=== PATIENT | female | born 1950 | race African-American/Black ===

== ENCOUNTER 2019-08-05 01:44 | Inpatient (IN) | payer BC, OTHER ==
[~2019-08-05] VITALS: Ht 157.5 cm; Wt 82.1 kg
[2019-08-05] VITALS (7 sets, daily range): BP systolic 104–123; BP diastolic 63–81
[2019-08-05 02:29] LABS: ABSOLUTE NEUTROPHILS 10.1 thou/uL (1.4-8.2); BASOPHILS 0.5 % (0.0-2.0); EOSINOPHILS 0.2 % (0.0-3.0); HEMATOCRIT 39.3 % (37.0-47.0); HEMOGLOBIN 12.5 gm/dL (12.0-15.0); MCH 25.5 pg (26.0-34.0); MCHC 31.9 g/dL (28.0-37.0); MCV 80.1 fL (80.0-100.0); MONOCYTES 4.8 % (1.0-8.0); PLATELET COUNT 440 thou/uL (150-400); POLYS 84.5 % (36.0-66.0); RBC 4.91 mil/uL (4.20-5.00); RDW 15.3 % (10.5-14.5)
[2019-08-05 02:40] LABS: ALBUMIN 2.8 g/dL (3.4-5.0); ANION GAP 10 mmol/L (7-16); BUN 7 mg/dL (7-18); CALCIUM 8.9 mg/dL (8.5-10.1); CHLORIDE 97 mmol/L (98-107); CO2 31 mmol/L (21-32); CREATININE 0.8 mg/dL (0.6-1.0); GLUCOSE 142 mg/dL (74-106); LIPASE 121 U/L (73-393); SGOT 224 U/L (15-37); SGPT 99 U/L (30-65); SODIUM 138 mmol/L (136-145); TOTAL BILIRUBIN 1.1 mg/dL (<0.1-1.0); TOTAL PROTEIN 7.7 g/dL (6.4-8.2); TROPONIN-I <0.06 ng/mL (<0.06)
[2019-08-05 02:42] LABS: POTASSIUM 2.7 mmol/L (3.5-5.1)
[2019-08-05] MEDS ORDERED: HYDROCHLOROTHIA25 M2 PO (02:51)
[2019-08-05] MEDS ORDERED: PRAVASTATIN SOD20 MG PO (02:51)
[2019-08-05] MEDS ORDERED: NORVASC 2.5 MG2.5 M1 PO (02:52)
--- NOTE | 2019-08-05 06:36 | NUR ---
PT ARRIVED FROM THE ER @0415 THIS MORNING WITH SPOUCE BY BEDSIDE. PT A&OX4 WITH MILD PAIN IN RLQ. IV INTACT FLUIDS AND POTASSIUM INFUISING. PT NPO ON ARRIVAL. DR RODARTE CAME BY TO SEE PT STATED TO STILL KEEP HER NPO. ADMISSION DONE AND PT ORIENTED TO THE UNIT. ZOFRAN GIVEN IN THE ER PT STATED NOT CURRENTLY NAUSEATED. CALL LIGHT IN REACH AND WILL CONT WITH POC TILL EOS.
--- NOTE | 2019-08-05 13:10 | NUR ---
PT ADMITTED RELATED TO ACUTE CHOLECYSTITIS. CM REVIEWED CHART AND SPOKE WITH CARE TEAM. CM MET WITH PT AT BEDSIDE THIS DAY. PT IS A&O X4. CM ROLE INTRODUCED. PT INDICATED SHE LIVES IN AN [place]ART[place] HER SPOUSE WITH 1 STEP TO ENTER AND NO STEPS INSIDE. 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 PT INDICATED NO DME OR HH HX. PT INDICATED SHE PLANS TO DC HOME ONCE MEDICALLY STABLE. PT TO HAVE MRCP AND MAY HAVE LAP ELBA DEPENDING ON RESULTS. CM TO FOLLOW INDICATED WITH DC PLANNING.
--- NOTE | 2019-08-05 15:44 | EKG ---
[facility] [place] [address] ELECTROCARDIOGRAM REPORT Name: JUAN MCCLELLAND Room #: 438-P ADM IN M.R.#: [id number] Admission: 08/05/19 Attend Phys: Vaishnavi Rooney MD Discharge: Date of : 52 Report #: [id number] THIS REPORT FOR: cc: Petty Owens K. Steven DO Lundgren, Craig H. 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
--- NOTE | 2019-08-05 19:40 | NUR ---
PT A&OX4. IV INTACT IN R AC. AMULATES WITH STAND BY ASSIST. PT ON CLEARS TIL MN THEN NPO. PLANS ARE FOR PT TO HAVE LAP ELBA TOMARROW. IV CONT. FLUIDS AND IVAB INFUSING.
--- NOTE | 2019-08-06 03:00 | NUR ---
PT GETS UP WITH SBA TO THE BATHROOM. PAIN TO ABDOMEN IS AT AROUND 5/10, RELIEVED WITH MORPHINE.AFEBRILE. DENIES NAUSEA OR VOMITING.NPO SINCE MIDNOC FOR SURGERY TODAY.
[2019-08-06 04:25] VITALS: BP 100/61
[2019-08-06 06:13] LABS: HEMATOCRIT 35.3 % (37.0-47.0); HEMOGLOBIN 11.3 gm/dL (12.0-15.0); MCH 25.7 pg (26.0-34.0); MCHC 31.9 g/dL (28.0-37.0); MCV 80.6 fL (80.0-100.0); RBC 4.39 mil/uL (4.20-5.00); WBC 7.5 thou/uL (4.0-11.0)
[2019-08-06 06:37] LABS: ALBUMIN 2.2 g/dL (3.4-5.0); CALCIUM 8.2 mg/dL (8.5-10.1); CREATININE 1.5 mg/dL (0.6-1.0); DIRECT BILIRUBIN 0.9 mg/dL (<0.1-0.2); POTASSIUM 3.1 mmol/L (3.5-5.1); TOTAL BILIRUBIN 1.5 mg/dL (<0.1-1.0); TOTAL PROTEIN 6.5 g/dL (6.4-8.2)
[2019-08-06 07:30] VITALS: BP 112/69
--- NOTE | 2019-08-06 13:43 | NUR ---
PT HAVING LAP ELBA THIS DAY. CM TO FOLLOW SHOULD ANY DC NEEDS ARISE.
[2019-08-06 17:00] VITALS: BP 125/68
--- NOTE | 2019-08-06 18:06 | NUR ---
PT RETURNED FROM PACU FROM LAP CHOLE. CÁRDENAS. LAP SITES ARE C/D/I WITH BERTHA DRAIN. IV FLUIDS NS AT RESTARTED AT 125/HR. CALL LIGHT W/I REACH BED ALARM IS ON.
[2019-08-06 19:55] VITALS: BP 116/62
--- NOTE | 2019-08-07 02:16 | NUR ---
ASSUMED PT CARE AT 1900. LAP SITES AND DRESSING ARE DRY AND INTACT. PT REPORTS NO NAUSEA, PAIN IS BEING MANAGED WITH PO PAIN MEDS. DRAIN HAS LITTLE OUTPUT. UP TO THE TOILE WITH STANDBY ASSIST TONIGHT, PT TOLERATED WELL. ANTIBIOTICS AND FLUIDS INFUSING PER ORDER. PT LOWERED TO 2L OF O2, UNABLE TO WEAN MUCH MORE DUE TO O2 SAT, WILL CONTINUE TO MONITOR. CURRENTLY SLEEPING IN BED WITH CALL LIGHT IN REACH.
[2019-08-07 04:20] VITALS: BP 108/57
[2019-08-07 06:15] LABS: HEMATOCRIT 35.6 % (37.0-47.0); HEMOGLOBIN 11.3 gm/dL (12.0-15.0); MCH 26.1 pg (26.0-34.0); MCHC 31.8 g/dL (28.0-37.0); RBC 4.33 mil/uL (4.20-5.00); RDW 16.4 % (10.5-14.5); WBC 11.7 thou/uL (4.0-11.0)
[2019-08-07 06:22] LABS: ALBUMIN 2.3 g/dL (3.4-5.0); CALCIUM 8.6 mg/dL (8.5-10.1); CREATININE 1.4 mg/dL (0.6-1.0); DIRECT BILIRUBIN 0.3 mg/dL (<0.1-0.2); TOTAL BILIRUBIN 0.7 mg/dL (<0.1-1.0)
[2019-08-07 06:33] LABS: POTASSIUM 4.1 mmol/L (3.5-5.1)
[2019-08-07 08:17] VITALS: BP 120/70
[2019-08-07] MEDS ORDERED: MIRALAX17 GM PO (14:27)
[2019-08-07] MEDS ORDERED: NORCO 5-325 TA1 EAC1 PO (14:27)
[2019-08-07] MEDS ORDERED: COLACE100 MG PO (14:27)
--- NOTE | 2019-08-07 14:31 | NUR ---
CARE TEAM INDICATED THAT PT IS MEDICALLY STABLE TO DISCHARGE HOME THIS DAY. PT IS TO DC HOME WITH A DRAIN. CARE TEAM AND PT INDICATED THAT SHE WAS COMFORTABLE CARING FOR THE DRAIN HERSELF AND DIDN'T NEED HOME HEALTH SERVICES UPON DC. PT IS TO DC HOME TO SELF CARE. NO OTHER CM INTERVENTION INDICATED. CASE CLOSED.
[2019-08-07 14:50] VITALS: BP 120/70
--- NOTE | 2019-08-07 16:17 | NUR ---
DC ORDERS RECEIVED. IV REMOVED FROM R AC. DC INSTRUCTIONS, SCRIPT, F/U APPOINTMENTS AND DRAIN CARE REVIEWED WITH PT. SHEET METAL ERECTOR ESCORTED PT TO MAIN ENTRANCE.
--- NOTE | 2019-08-08 17:07 | PATH ---
[facility] [address] [place] [address] PATHOLOGY RPT PROCEDURE Name: LEEANNA MCCLELLAND Room #: 438-P [facility] IN M.R.#: [id number] Admission: 08/05/19 Date of : 52 Discharge: 08/07/19 Report #: [id number] Path Case #: [id number] [facility] Accession Number: [id number] . 01 Material submitted: . gallbladder - GALLBLADDER . 01 Clinical history: . Acute cholecystitis . 02 Diagnosis: Gallbladder, cholecystectomy: - Marked acute and hemorrhagic cholecystitis associated with ulceration. - Cholelithiasis. 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 02 Electronically signed: . Peace Dsouza MD, Pathologist NPI- [id number] . 01 Gross description: . The specimen is received in formalin, labeled "Leeanna Mcclelland gallbladder". Received is a previously opened gallbladder measuring 8.8 x 3.8 x 2.6 cm in greatest dimensions displaying a dusky pink-snyder serosal surface. Opening the specimen reveals a velvety to smooth, light brown mucosa with a moderate amount of overlying exudate and with a gallbladder wall thickness of 0.1 cm. Calculi are present displaying a light brown and nodular appearance, and no masses or lesions are noted grossly. Cognos Tm1 Developer sections, to include the proximal margin, are submitted in cassette A1. (CAA; 08/07/2019) QAC/QA 08/07/2019 1446 Local . 02 Pathologist provided ICD-10: K80.00, K82.8 . 02 CPT . 818297 Specimen Comment: A courtesy copy of this report has been sent to [phone], [phone] Specimen Comment: [phone], Specimen Comment: Report sent to DR GALAN,DR HENLEY / DR ALBRECHT Performed at: [address] [id number] MD Ghanshyam Huber MD Phone: [phone] [address] [address] PATHOLOGY RPT PROCEDURE Name: ALFRED MCCLELLANDDANELLE Whitehead Room #: 438-P DIS IN M.R.#: [id number] Admission: 08/05/19 Date of : 52 Discharge: 08/07/19 Report #: [id number] Path Case #: [id number] Performed at: 02 [facility] [address] [facility], [place], [place] [id number] MD Peace Dsouza MD Phone: [phone]
== END 2019-08-07 17:50 | disposition home or self-care (01) | DRG 418 ==
LOC: ER 01:44 → EROBS 03:08 → 4S 03:08 → EROBS 03:43 → 4S 04:08
PROVIDERS: Emergency Medicine Emergency Medical Services; Nurse Practitioner; Nurse Practitioner Family; Surgery; ADMIT Internal Medicine
PROC: BF121ZZ Fluoroscopy of Gallbladder using Low Osmolar Contrast (ICD-10-PCS; principal; 2019-08-06)
PROC: 0FT44ZZ Resection of Gallbladder, Percutaneous Endoscopic Approach (ICD-10-PCS; principal; 2019-08-06)
DX: K80.00 Calculus of gallbladder with acute cholecystitis without obstruction (principal); N17.9 Acute kidney failure, unspecified; E87.6 Hypokalemia; E78.5 Hyperlipidemia, unspecified; R74.0 Nonspecific elevation of levels of transaminase and lactic acid dehydrogenase [LDH]; I10 Essential (primary) hypertension; E66.01 Morbid (severe) obesity due to excess calories; Z68.33 Body mass index [BMI] 33.0-33.9, adult; Z80.0 Family history of malignant neoplasm of digestive organs; Z79.899 Other long term (current) drug therapy
CPT/HCPCS: 10195; 50010; 50101; 50249; 50331; 50411; 50555; 50558; 50900; 51489; 52265; 52266; 52287; 53307; 53310; 53312; 54022; 54118; 55245; 56462; 56525; 56526; 56674; 62110; 62900; 70005

== ENCOUNTER 2019-10-17 07:45 | Day surgery (SDC) | payer BC, OTHER ==
[2019-10-10 11:21] LABS: HEMOGLOBIN 12.9 gm/dL (12.0-15.0); MCH 26.6 pg (26.0-34.0); MCHC 33.2 g/dL (28.0-37.0); MCV 80.4 fL (80.0-100.0); RBC 4.85 mil/uL (4.20-5.00); RDW 15.2 % (10.5-14.5); WBC 6.2 thou/uL (4.0-11.0)
[2019-10-10 11:29] LABS: URINE BILIRUBIN NEGATIVE (Negative); URINE BLOOD NEGATIVE (Negative); URINE CLARITY CLEAR; URINE COLOR YELLOW; URINE GLUCOSE-RANDOM* NEGATIVE (Negative); URINE KETONES NEGATIVE (Negative); URINE LEUKOCYTES-REFLEX TRACE (Negative); URINE NITRITE-REFLEX NEGATIVE (Negative); URINE PROTEIN (DIPSTICK) NEGATIVE (Negative); URINE SPECIFIC GRAVITY 1.015 (1.005-1.035); URINE UROBILINOGEN 0.2 E.U./dl (0.2-1.0)
[2019-10-10 11:31] LABS: ALBUMIN 3.9 g/dL (3.4-5.0); CALCIUM 9.3 mg/dL (8.5-10.1); CREATININE 0.8 mg/dL (0.6-1.0); POTASSIUM 3.4 mmol/L (3.5-5.1)
[2019-10-10 11:33] LABS: PROTIME 10.3 Seconds (9.3-11.4)
[2019-10-10 11:35] LABS: SSA (PROTEIN CONFIRMATORY) NEGATIVE (Negative)
[~2019-10-17] VITALS: Ht 157.5 cm; Wt 79.4 kg
[~2019-10-17 07:45] MED LIST: AMLODIPINE BESY10 MG PO; COLACE100 MG PO; HYDROCHLOROTHIA25 M2 PO; KLOR-CON M2020 MEQ PO; MIRALAX17 GM PO; NORCO 5-325 TA1 EAC1 PO; NORVASC 2.5 MG2.5 M1 PO; NORVASC10 MG PO; PRAVACHOL40 MG PO; PRAVASTATIN SOD20 MG PO; TRIAMTERENE/HCT1 CA1 PO
[2019-10-17 08:34] VITALS: BP 113/74
--- NOTE | 2019-10-17 18:30 | NUR ---
VSS-AFEBRILE. LUNGS CLEAR-ROOM AIR. PAIN WELL CONTROLLED, HAVE NOT NEEDED TO MEDICATE SINCE ARRIVAL FROM PACU. OOB WITH PHYSICAL THERAPY, SITTING UP IN CHAIR WITH ICE PACK IN PLACE. NO DIFFICULTY VOIDING POST OPERATIVELY. CALLS APPROPRIATELY FOR ANY NEEDED ASSISTANCE.
[2019-10-17 20:06] VITALS: BP 122/59
[2019-10-18 03:35] VITALS: BP 105/65
--- NOTE | 2019-10-18 03:55 | NUR ---
ASSESSED AT START OF SHIFT PT A&OX4. RATED KNEE PAIN 2/10. UP WITH ASSISTX1 TO THE BATHROOM. IV INTACT AND FLUIDS INFUISING. POLAR PACK AND DAVID DRESSING IN PLACE. ANTICIPATING D/C TOMORROW. CALL LIGHT IN REACH AND WILL CONT WITH POC TILL EOS.
[2019-10-18 04:09] LABS: HEMATOCRIT 35.4 % (37.0-47.0); HEMOGLOBIN 11.3 gm/dL (12.0-15.0); MCV 81.4 fL (80.0-100.0); RBC 4.35 mil/uL (4.20-5.00); WBC 11.6 thou/uL (4.0-11.0)
--- NOTE | 2019-10-18 07:30 | NUR ---
chart review. pt here in july and had lap chol. she here for tka. noted in chart pt lives with spouse in apartment. 1 step to enter and no stairs inside. independent prior to hospital. no hh in past. unable to visit with pt at this time. will cont following as needed for dc needs.
[2019-10-18 08:00] VITALS: BP 124/92
[2019-10-18 11:28] VITALS: BP 124/92
--- NOTE | 2019-10-18 14:26 | NUR ---
ASSUMED CARE OF THE PT AT 0700. PT IS STANDBY ASSIST WITH WALKER AND GAIT BELT. HAD BM TODAY. IV REMOVED FOR D/C. C/O SORENESS, PAIN MED GIVEN SEE EMAR. DAVID DRESSING, SCD'S, ASHLEY KNEE [place] HOSE AND SHANNON WRAP INTACT. PT IS D/C'ING TO HOME WITH SPOUSE, SPOKE WITH ON PTS CARE. FALL PRECAUTIONS IN PLACE BED IN TH ELOWEST POSITION AND CALL LIGHT WITHIN REACH/BED ALARM ON. PT D/C'D TO HOME.
--- NOTE | 2019-10-25 11:19 | O ---
[facility] [place] [address] OPERATIVE REPORT Name: JUAN MCCLELLAND Room #: DEP [facility]..#: [id number] Admission: 10/17/19 Attend Phys: Leeroy Ruiz MD Discharge: 10/18/19 Date of : 52 Report #: [id number] THIS REPORT FOR: cc: Petty Owens K. Steven DO Abraham,Leeroy Salinas MD ~ CC: Petty Ruiz DATE OF SERVICE: 10/17/2019 PREOPERATIVE DIAGNOSIS: Right knee osteoarthritis. POSTOPERATIVE DIAGNOSIS: Right knee osteoarthritis. PROCEDURE: Right total knee arthroplasty using Navio robotic assistance. SURGEON: Leeroy Ruiz MD CONGRESSIONAL AIDE: Jenni Mueller PA-C INDICATIONS FOR ASSISTANCE: Throughout the case, extensive retraction and manipulation of the knee was required, this was afforded to me by my cafeteria assistant. ANESTHESIA: LMA with an adductor canal block. IMPLANTS: Burton [employer] Nephew size 3 Journey II BCS Oxinium femur, a size 2 tibia, a size 11 polyethylene and a size 29 patella. TOURNIQUET TIME: 55 minutes. ESTIMATED BLOOD LOSS: 25 mL. COMPLICATIONS: None. SPECIMENS: None. CONDITION UPON LEAVING THE OPERATING ROOM: Stable. INDICATIONS FOR PROCEDURE: The patient is a 69-year-old female with right knee osteoarthritis. She had failed conservative measures for this and after discussion with her, she elected for right total knee arthroplasty. DESCRIPTION OF PROCEDURE: Risks, benefits, alternatives, complications were discussed in detail with the patient including but not limited to risk of anesthesia, risk of damage to nerves, arteries, blood vessels, risk for [facility] [address] [place] [address] OPERATIVE REPORT Name: JUAN MCCLELLAND Room #: DEP [facility].#: [id number] Admission: 10/17/19 Attend Phys: Leeroy Ruiz MD Discharge: 10/18/19 Date of : 52 Report #: [id number] infection, bleeding, risk for continued knee pain and need for re-operation. Informed consent was obtained from the patient. Right knee was appropriately marked in the preoperative holding area. IV Ancef was given for preoperative antibiotics. She was brought to the operating room and placed in the supine position on the operating room table. LMA anesthesia was induced without complication. Tourniquet was placed on the right thigh. Right lower extremity was prepped and draped in normal sterile fashion. Timeout was performed properly identifying the patient and procedure as well as the instrumentation and implants. All in the operating room were in agreement. Right lower extremity was exsanguinated, tourniquet was inflated. Tourniquet time was 55 minutes. Standard midline approach to the knee was made with a 10 blade through the skin. Dissection was taken down sharply to the fascia and deep flaps were developed medially and laterally. A fresh 10 blade was used to make a medial parapatellar arthrotomy and the knee was inspected. There was severe tricompartmental osteoarthritis. ACL and PCL were removed sharply. Reference pins were placed in the femur and the tibia and the knee was then digitally mapped using the Spayee robotic system. Intraoperative plan was made and we sized the size 3 femur with a size 2 tibia and a size 10 spacer. After acceptance of the intraoperative plan, the distal femoral cut was made with a Navio bur. Distal femoral cutting block was pinned in place and the distal femoral cuts were made. Attention was turned to the tibia. The remainder of the menisci removed with Bovie cautery. Tibial resection guide was pinned in place using the Navio for placement of the guide and tibial resection was made. After this, medial osteophyte was removed from the tibia and flexion and extension gaps were checked and found to have good balance in flexion and extension both medially and laterally. Tibia was sized, found to be a size 2. A size 2 tibial trial was placed, pinned and punched. A size 3 femoral trial was placed and the box cut was made. This was then trialed with a size 10 and then a size 11 polyethylene. Size 11 polyethylene demonstrated a millimeter to 2 millimeter of laxity medially and laterally throughout range of motion. After this, 9 mm was resected from the posterior surface of the patella and a size 29 patellar trial button was placed. Knee was taken through range of motion, found to be stable, found to have good patellar tracking. Trial components were removed. Bony ends were thoroughly irrigated with normal saline. Final size 2 tibia, size 3 Journey II BCS Oxinium femur and a size 29 patella were cemented in place using standard cementation techniques. While the cement cured, a periarticular injection consisting of morphine, ropivacaine, epinephrine and Toradol was placed around the knee joint capsule. After the cement cured, the tourniquet was deflated. Hemostasis was obtained with Bovie cautery. A final size 11 polyethylene was placed. A gram of vancomycin was placed within the joint. Fascia was closed with 0 Vicryl, skin was closed with 2-0 Vicryl, 3-0 Monocryl. Dermabond and a DAVID dressing was applied. The patient tolerated [address] [address] OPERATIVE REPORT Name: JUAN MCCLELLAND Room #: [facility] [facility]#: [id number] Admission: 10/17/19 Attend Phys: Leeroy Ruiz MD Discharge: 10/18/19 Date of : 52 Report #: [id number] this procedure well and went to recovery room under care of Anesthesia postoperatively. <ELECTRONICALLY SIGNED> By: Leeroy Ruiz MD 10/25/19 1119 1235 1302 Leeroy Ruiz MD /nt
== END 2019-10-18 12:44 | disposition home or self-care (01) ==
LOC: PRE → OR 07:45 → TBA 07:47 → PRE 09:00 → 4S 15:25 → EDSTATUS 16:04 → OR 16:10
PROVIDERS: Orthopaedic Surgery
DX: M17.11 Unilateral primary osteoarthritis, right knee (principal); M25.561 Pain in right knee; I10 Essential (primary) hypertension; E78.00 Pure hypercholesterolemia, unspecified; Z90.49 Acquired absence of other specified parts of digestive tract; Z98.890 Other specified postprocedural states; Z79.899 Other long term (current) drug therapy; Z11.59 Encounter for screening for other viral diseases
CPT/HCPCS: 10102; 50010; 50101; 50415; 50954; 51130; 51225; 51320; 52001; 52282; 53000; 53078; 54118; 56527; 56528; 57095; 57103; 57110; 57127; 57180; 57952; 62110; 62900; 64042; 70005